=== PATIENT | female | born 1955 | race Caucasian/White ===

== ENCOUNTER 2016-05-03 18:25 | Inpatient (IN) | payer OTHER ==
[2016-05-03] VITALS (7 sets, daily range): BP systolic 168–222; BP diastolic 72–100; PULSE 52–60; RESP 16–20; O2SAT 97–99
[~2016-05-03] VITALS: Ht 170.2 cm; Wt 60.0 kg
[2016-05-03] MEDS ORDERED: ATEN50TA PO (18:56)
[2016-05-03] MEDS ORDERED: LEVO50TA4 PO (18:56)
[2016-05-03] MEDS ORDERED: HYDR50TA3 PO (18:56)
[2016-05-03] MEDS ORDERED: ROSU1TAB6 PO (18:56)
[2016-05-03] MEDS ORDERED: TRAZ150T75 PO (18:56)
[2016-05-03] MEDS ORDERED: IRBE150T49 PO (18:56)
[2016-05-03] MEDS ORDERED: SODIUM CHLORIDE 0.9% FLUSH 5 ML FLUSH IVF PRN (19:15)
[2016-05-03] MEDS ORDERED: hydrALAZINE HCL 20 MG/ML VIAL IV PUSH ONE (19:15)
--- NOTE | 2016-05-03 19:31 | RADRPT ---
EXAM DATE/TIME: 05/03/2016 19:22 [facility] COMPARISON: No previous studies available for comparison. INDICATIONS : Cephalgia with high blood pressure; left arm numbness. RADIATION DOSE: 38.73 CTDIvol (mGy) MEDICAL HISTORY : Hypertension. SURGICAL HISTORY : None. ENCOUNTER: Initial ACUITY: 1 day PAIN SCALE: 4/10 LOCATION: cranial TECHNIQUE: Multiple contiguous axial images were obtained of the head. Using automated exposure control and adj ustment of the mA and/or kV according to patient size, radiation dose was kept as low as reasonably a chievable to obtain optimal diagnostic quality images. FINDINGS: CEREBRUM: The ventricles are normal for age. No evidence of midline shift, mass lesion, hemorrhage or acute in farction. No extra-axial fluid collections are seen. Chronic-appearing low attenuation seen in the r ight insular region. POSTERIOR FOSSA: The cerebellum and brainstem are intact. The 4th ventricle is midline. The cerebellopontine angle i s unremarkable. EXTRACRANIAL: There is mucoperiosteal thickening of the sphenoid, ethmoid and maxillary air cells, in general right worse than left. SKULL: The calvaria is intact. No evidence of skull fracture. CONCLUSION: 1. No bleed or other acute intracranial abnormality. 2. Small, old right periventricular white matter infarct suspected. 3. Sinus disease. Juan Elder MD on May 03, 2016 at 19:27 Board Certified Radiologist. This report was verified electronically.
--- NOTE | 2016-05-03 19:39 | PD ---
HPI Chief Complaint: Hypertension Time Seen by Provider: 19:00 Travel History International Travel<30 days: No Contact w/Intl Traveler<30days: No Traveled to known affect area: No History of Present Illness HPI Patient is a 61-year-old female with history of hypertension currently taking ibesartan 150mg BID, hctz 50mg and now atenolol 50mg bid, presents to ER with c/ o of accelerated hypertension. Patient reports that she woke up this morning and noticed that her ankles appear more swollen, reports that she also was noticing that her right thumb felt numb, and reports that she had 3 episodes of vision loss/blurry vision today (which lasted around 3 min and resolved on its own). Patient reports that when she had these symptoms, she did become concerned and took her blood pressure. She reports that her blood pressures at home were elevated, she reports systolic blood pressure in the 200s, 199/101, reports that she did call her primary care doctor who added atenolol 50 mg to her medications. Patient reports that she did take a dose of atenolol and wait a few hours, reports that she then began to have increased symptoms and blood pressure was still elevated so care doctor advised her to come to the emergency room for evaluation of possible CVA versus hypertensive emergency. Patient this time reports no vision changes or blurry vision, denies any chest pain or shortness of breath. Patient reports that she feels increased pressure to her head. Patient does take a baby aspirin every single day. Patient with no fevers or chills at this time. PFSH Past Medical History Diverticulitis: Yes Genitourinary: Yes (stent renal artery) Hypertension: Yes ?: Not Social History Alcohol Use: Yes (rare) Tobacco Use: Yes (1/2 pack day) Substance Use: No Allergies-Medications (Allergen,Severity, Reaction): Coded Allergies: No Known Allergies (Unverified , 05/03/16) Reported Meds & Prescriptions Reported Meds & Active Scripts Active Reported Atenolol 50 Mg Tab 50 Mg PO BID Avapro (Irbesartan) 150 Mg Tab 150 Mg PO BID Levothyroxine (Levothyroxine Sodium) 50 Mcg Tab 50 Mcg PO DAILY Rosuvastatin (Rosuvastatin Calcium) 10 Mg Tab 10 Mg PO DAILY Hydrochlorothiazide 50 Mg Tab 50 Mg PO DAILY Trazodone (Trazodone HCl) 150 Mg Tab 150 Mg PO DAILY Review of Systems General / Constitutional: No: Fever Eyes: No: Visual changes HENT: Positive: Headaches, Other (vision changes) Cardiovascular: No: Chest Pain or Discomfort Respiratory: No: Shortness of Breath Gastrointestinal: No: Abdominal Pain Genitourinary: No: Dysuria Musculoskeletal: No: Pain Skin: No Rash Neurologic: Positive: Headache, No: Weakness Psychiatric: No: Depression Endocrine: No: Polydipsia Hematologic/Lymphatic: No: Easy Bruising Physical Exam Narrative GENERAL: No acute distress, nontoxic SKIN: Warm and dry. HEAD: Atraumatic. Normocephalic. EYES: Pupils equal and round. No scleral icterus. No injection or drainage. ENT: No nasal bleeding or discharge. Mucous membranes pink and moist. NECK: Trachea midline. No JVD. CARDIOVASCULAR: Regular rate and rhythm. No murmur appreciated. RESPIRATORY: No accessory muscle use. Clear to auscultation. Breath sounds equal bilaterally. GASTROINTESTINAL: Abdomen soft, non-tender, nondistended. Hepatic and splenic margins not palpable. MUSCULOSKELETAL: No obvious deformities. No clubbing. No cyanosis. No edema. NEUROLOGICAL: Awake and alert. No obvious cranial nerve deficits. Motor grossly within normal limits. Normal speech. Cranial nerves to 12 grossly intact with no obvious deficits PSYCHIATRIC: Appropriate mood and affect; insight and judgment normal. Data Data Last Documented VS Vital Signs Date Time Temp Pulse Resp B/P Pulse Ox O2 Delivery O2 Flow Rate FiO2 05/03/16 19:56 60 169/75 05/03/16 18:59 20 99 Room Air Orders Electrocardiogram (05/03/16 19:06) Prothrombin Time / Inr (Pt) (05/03/16 19:06) Act Partial Throm Time (Ptt) (05/03/16 19:06) Complete Blood Count With Diff (05/03/16 19:06) Comprehensive Metabolic Panel (05/03/16 19:06) Creatine Kinase (Cpk) (05/03/16 19:06) Troponin I (05/03/16 19:06) Urinalysis - C+S If Indicated (05/03/16 19:06) Ct Brain W/O Iv Contrast(Rout) (05/03/16 19:06) Chest, Single Ap (05/03/16 19:06) Ecg Monitoring (05/03/16 19:06) Iv Access Insert/Monitor (05/03/16 19:06) Oximetry (05/03/16 19:06) Sodium Chloride 0.9% Flush (Ns Flush) (05/03/16 19:15) Hydralazine Inj (Apresoline Inj) (05/03/16 19:15) Blood Culture (05/03/16 20:02) Ceftriaxone Inj (Rocephin Inj) (05/03/16 20:15) Azithromycin Inj (Zithromax Inj) (05/03/16 20:15) Aspirin (Aspirin) (05/03/16 20:15) Urine Culture (05/03/16 19:30) Labs Laboratory Tests Test 05/03/16 19:30 White Blood Count 11.0 TH/MM3 Red Blood Count 3.43 MIL/MM3 Hemoglobin 9.7 GM/DL Hematocrit 28.6 % Mean Corpuscular Volume 83.4 FL Mean Corpuscular Hemoglobin 28.3 PG Mean Corpuscular Hemoglobin 33.9 % Concent Red Cell Distribution Width 14.3 % Platelet Count 192 TH/MM3 Mean Platelet Volume 8.4 FL Neutrophils (%) (Auto) 66.4 % Lymphocytes (%) (Auto) 25.8 % Monocytes (%) (Auto) 4.8 % Eosinophils (%) (Auto) 2.4 % Basophils (%) (Auto) 0.6 % Neutrophils # (Auto) 7.3 TH/MM3 Lymphocytes # (Auto) 2.8 TH/MM3 Monocytes # (Auto) 0.5 TH/MM3 Eosinophils # (Auto) 0.3 TH/MM3 Basophils # (Auto) 0.1 TH/MM3 CBC Comment DIFF FINAL Differential Comment Prothrombin Time 13.9 SEC Prothromb Time International 1.2 RATIO Ratio Activated Partial 56.5 SEC Thromboplast Time Urine Color YELLOW Urine Turbidity CLEAR Urine pH 6.5 Urine Specific [place] 1.009 Urine Protein 300 mg/dL Urine Glucose (UA) NEG mg/dL Urine Ketones NEG mg/dL Urine Occult Blood MOD Urine Nitrite NEG Urine Bilirubin NEG Urine Urobilinogen LESS THAN 2.0 MG/DL Urine Leukocyte Esterase NEG Urine RBC 37 /hpf Urine WBC 4 /hpf Urine Squamous Epithelial 1 /hpf Cells Urine Bacteria RARE /hpf Urine Hyaline Casts 1 /lpf Urine Mucus FEW /lpf Microscopic Urinalysis Comment CATH-CULTURE IND Sodium Level 143 MEQ/L Potassium Level 3.9 MEQ/L Chloride Level 110 MEQ/L Carbon Dioxide Level 23.2 MEQ/L Anion Gap 10 MEQ/L Blood Urea Nitrogen 24 MG/DL Creatinine 1.30 MG/DL Estimat Glomerular Filtration 42 ML/MIN Rate Random Glucose 130 MG/DL Calcium Level 8.9 MG/DL Total Bilirubin 0.3 MG/DL Aspartate Amino Transf 14 U/L (AST/SGOT) Alanine Aminotransferase 17 U/L (ALT/SGPT) Alkaline Phosphatase 94 U/L Total Creatine Kinase 69 U/L Troponin I 0.07 NG/ML Total Protein 6.5 GM/DL Albumin 2.9 GM/DL MDM Medical Decision Making Medical Screen Exam Complete: Yes Emergency Medical Condition: Yes Interpretation(s) EKG at 1945: Sinus bradycardia at 50 bpm, QT/QTc 442/414, no acute ST-T wave changes Vital Signs Date Time Temp Pulse Resp B/P Pulse Ox O2 Delivery O2 Flow Rate FiO2 05/03/16 18:59 55 20 222/100 99 Room Air 217/100 05/03/16 18:46 58 20 221/93 99 Differential Diagnosis Hypertensive emergency, TIA, CVA, arrhythmia, electrolyte abnormality Narrative Course Patient is a 61-year-old female who presents to emergency room with complaints of hypertension as well as vision changes with right thumb numbness and swelling to her ankles. Patient reports that she noticed the symptoms this morning, reports that she is currently on but pressure medications and has been compliant with her medications, reports that her systolic blood pressure has been over 200 to the high 190s day today. Patient did start atenolol today, reports it is has not helped with her blood pressure. Reports concerns with her intermittent visual losses as well as numbness her thumb. Patient was placed on a client service consultant, EKG ordered as well as labs and ct of head. Will give patient IV antihypertensives for her bp of 217/100 Patient's blood pressure after 10 mg of IV hydralazine now 169/75 CT of the head with Last Impressions Head CT 05/03/161905 Signed Impressions: Service Date/Time: Tuesday, May 03, 2016 19:22 - CONCLUSION: 1. No bleed or other acute intracranial abnormality. 2. Small, old right periventricular white matter infarct suspected. 3. Sinus disease. Juan Elder MD Patient will admission for blood pressure control. Last Impressions Head CT 05/03/161905 Signed Impressions: Service Date/Time: Tuesday, May 03, 2016 19:22 - CONCLUSION: 1. No bleed or other acute intracranial abnormality. 2. Small, old right periventricular white matter infarct suspected. 3. Sinus disease. Juan Elder MD Chest X-Ray 05/03/161905 Signed Impressions: Service Date/Time: Tuesday, May 03, 2016 19:40 - CONCLUSION: Mild left base consolidation. Juan Elder MD X-ray chest with mild left base consolidation - patient reports that she was recently ill with upper respiratory infection. Reports that she has had a nonproductive cough for the past 3 weeks. Patient with most likely pneumonia, will obtain blood cultures and treat for pneumonia. Physician Communication Physician Communication case reviewed with dr lam who accepts pt to service Diagnosis Primary Impression: Hypertensive urgency Additional Impressions: Pneumonia Qualified Code: J18.1 - Pneumonia of left lower lobe due to infectious organism Renal insufficiency positive troponin Admitting Information Admitting Physician Requests: Admit Rosa Grimes DO May 03, 2016 19:39
--- NOTE | 2016-05-03 19:55 | RADRPT ---
EXAM DATE/TIME: 05/03/2016 19:40 [facility] COMPARISON: No previous studies available for comparison. INDICATIONS : High blood pressure and short of breath today. MEDICAL HISTORY : Hypertension. SURGICAL HISTORY : Cardiac stent. ENCOUNTER: Initial ACUITY: 1 day PAIN SCORE: 2/10 LOCATION: Bilateral chest FINDINGS: Mild infiltrate seen laterally of the left lung base. Lungs otherwise appear clear. No pleural effusi on. No pneumothorax. Heart size within normal limits. CONCLUSION: Mild left base consolidation. Juan Elder MD on May 03, 2016 at 19:53 Board Certified Radiologist. This report was verified electronically.
[2016-05-03 20:09] LABS: AUTOMATED NEUTROPHIL # 7.3 TH/MM3 (1.8-7.7); BASOPHIL # 0.1 TH/MM3 (0-0.2); BASOPHIL % 0.6 % (0.0-2.0); EOSINOPHIL # 0.3 TH/MM3 (0-0.4); EOSINOPHIL % 2.4 % (0.0-4.0); HEMATOCRIT 28.6 % (35.0-46.0); HEMO FLAGS DIFF FINAL; LYMPH % 25.8 % (9.0-44.0); LYMPHOCYTE # 2.8 TH/MM3 (1.0-4.8); MEAN CELL VOLUME 83.4 FL (80.0-100.0); MEAN CORPUSCULAR HEMOGLOBIN 28.3 PG (27.0-34.0); MEAN CORPUSCULAR HGB CONC 33.9 % (32.0-36.0); MONO % 4.8 % (0.0-8.0); NEUT % 66.4 % (16.0-70.0); PLATELET COUNT 192 TH/MM3 (150-450); RED BLOOD COUNT 3.43 MIL/MM3 (4.00-5.30); RED CELL DISTRIBUTION WIDTH 14.3 % (11.6-17.2)
[2016-05-03 20:15] LABS: BACTERIA, URINE RARE /hpf; BLOOD, URINE MOD (NEG); COMMENT (UR) CATH-CULTURE IND; CULTURE IF INDICATED CATH CULTURE IND; GLUCOSE,URINE NEG (NEG); HYALINE CAST, URINE 1 /lpf (RARE); KETONE, URINE NEG (NEG); MUCUS URINE FEW /lpf (OCC); NITRITE,URINE NEG (NEG); PH, URINE 6.5 (5.0-8.5); SQUAMOUS EPITHELIAL CELL URINE 1 /hpf (0-5); URINE COLOR YELLOW (YELLW/STRAW)
[2016-05-03] MEDS ORDERED: cefTRIAXone INJ 1,000 MG in SODIUM CHLORIDE 0.9% INJ 100 ML IV ONE (20:15)
[2016-05-03] MEDS ORDERED: AZITHROMYCIN INJ 500 MG in SODIUM CHLOR 0.9% 250 ML INJ 250 ML IV ONE (20:15)
[2016-05-03] MEDS ORDERED: ASPIRIN 325 MG TAB PO ONE (20:15)
[2016-05-03 20:19] LABS: APTT (PATIENT) 56.5 SEC (24.3-30.1); INTERNATIONAL NORMALIZED RATIO 1.2 RATIO; PROTHROMBIN TIME - PATIENT 13.9 SEC (9.8-11.6)
[2016-05-03 20:22] LABS: ANION GAP 10 MEQ/L (5-15); AST (GOT) 14 U/L (15-37); BICARBONATE 23.2 MEQ/L (21.0-32.0); BLOOD UREA NITROGEN 24 MG/DL (7-18); CHLORIDE 110 MEQ/L (98-107); GLOMERULAR FILTRATION RATE 42 ML/MIN (>89); POTASSIUM 3.9 MEQ/L (3.5-5.1); SODIUM (NA) 143 MEQ/L (136-145)
[2016-05-03 20:26] LABS: ALKALINE PHOSPHATASE 94 U/L (45-117); ALT (GPT) 17 U/L (10-53); TOTAL BILIRUBIN ADULT 0.3 MG/DL (0.2-1.0)
[2016-05-03 20:31] LABS: CREATINE KINASE 69 U/L (26-192)
[2016-05-03] MEDS ORDERED: cloNIDine HCL 0.1 MG TAB PO PRN (21:15)
[2016-05-03] MEDS ORDERED: LOSARTAN 50 MG TAB PO SCH (21:15)
--- NOTE | 2016-05-03 21:22 | HHI.HP ---
HPI Service [facility] Hospitalists Primary Care Physician Juan Joyce, DO Admission Diagnosis Accelerated hypertension with transient neurologic deficits, pneumonia Chief Complaint: Elevated blood pressure, transient visual changes, productive cough, headache, tingling/numbness Travel History International Travel<30 Days: No Contact w/Intl Traveler <30 Da: No Traveled to Known Affected Are: No History of Present Illness Patient is a 61-year-old female with history of hypertension currently taking ibesartan 150mg BID, hctz 50mg and newly added atenolol 50mg bid, presents to ER with c/o of accelerated hypertension with some visual changes and tingling. Patient reports that she woke up this morning and noticed that her ankles appeared more swollen, reports that she also was noticing that her left thumb felt numb, and reports that she had 3 episodes of vision loss/blurry vision today (which lasted around 3 min and resolved on its own). Patient reports that when she had these symptoms, she did become concerned and took her blood pressure. She reports that her blood pressures at home were elevated, she reports systolic blood pressure in the 200s, 199/101. Reports that she called her primary care doctor who added atenolol 50 mg twice daily to her medications. Patient reports that she did take a dose of atenolol and waited a few hours, reports that she then began to have increased symptoms and blood pressure was still elevated so her doctor advised her to come to the emergency room for evaluation of possible CVA versus hypertensive emergency. Patient this time reports no vision changes or blurry vision, denies any chest pain or shortness of breath. Patient reports that she feels increased pressure to her head. Patient does takes 2 baby aspirin every single day. Patient with no fevers or chills at this time. No recent foreign travel or head injury. No change in urination output. She has long-standing history of hypertension but notes it only has become somewhat uncontrolled over the last few days. On further questioning patient notes that she's had some complete loss of vision in her right eye approximately one time per week over the last 6 months. She reports that the right eye will "go black" for approximately 3-4 minutes. The vision comes back. She is reportedly not told any medical provider about this. It is noted she has been treated for pneumonia as an outpatient with Levaquin and prednisone which she finished approximately 10-12 days ago. She notes the cough has returned and she is not sure she's had a fever or not. Denies any hemoptysis or hematemesis. No significant weight loss. Denies night sweats. Review of Systems Constitutional: COMPLAINS OF: Fatigue, Chills, DENIES: Diaphoretic episodes, Fever, Weight gain, Weight loss, Dizziness, Change in appetite, Night Sweats Eyes: COMPLAINS OF: Blurred vision, Vision loss, DENIES: Diplopia, Eye inflammation, Eye pain, Photosensitivity, Double Vision Ears, nose, mouth, throat: DENIES: Tinnitus, Hearing loss, Vertigo, Nasal discharge, Oral lesions, Throat pain, Hoarseness, Ear Pain, Running Nose, Epistaxis, Sinus Pain, Toothache, Odynophagia Respiratory: COMPLAINS OF: Cough, Sputum production, Shortness of breath, DENIES: Apneas, Snoring, Wheezing, Hemoptysis Cardiovascular: COMPLAINS OF: Lower Extremity Edema, DENIES: Chest pain, Palpitations, Syncope, Dyspnea on Exertion, PND, Orthopnea, Claudication Gastrointestinal: DENIES: Abdominal pain, Black stools, Bloody stools, BRB per rectum, Constipation, Diarrhea, GERD, Nausea, Reflux, Vomiting, Difficulty Swallowing, Anorexia, See HPI Integumentary: DENIES: Abnormal pigmentation, Pruritus, Rash, Nail changes, Breast masses, Breast skin changes, Nipple discharge Hematologic/lymphatic: DENIES: Bruising, Lymphadenopathy Immunologic/allergic: DENIES: Eczema, Urticaria Neurologic: COMPLAINS OF: Headache, Paresthesias, DENIES: Abnormal gait, Localized weakness, Seizures, Speech Problems, Tremor, Poor Balance Psychiatric: COMPLAINS OF: Anxiety, DENIES: Confusion, Mood changes, Depression, Hallucinations, Agitation, Suicidal Ideation, Homicidal Ideation, Delusions, History of Bipolar, History of Schizophrenia Past Family Social History Past Medical History Coronary artery disease Hypertension Current every day smoker Hyperlipidemia Past Surgical History Heart catheterization with stent placement in 2007 in [place] Denies any other surgeries Reported Medications Atenolol 50 Mg Tab 50 Mg PO BID Avapro (Irbesartan) 150 Mg Tab 150 Mg PO BID Levothyroxine (Levothyroxine Sodium) 50 Mcg Tab 50 Mcg PO DAILY Rosuvastatin (Rosuvastatin Calcium) 10 Mg Tab 10 Mg PO DAILY Hydrochlorothiazide 50 Mg Tab 50 Mg PO DAILY Trazodone (Trazodone HCl) 150 Mg Tab 150 Mg PO DAILY Allergies: Coded Allergies: No Known Allergies (Unverified , 05/03/16) Family History Mother and father had coronary artery disease. No strokes to her knowledge. Social History Patient lives with her daughter who is a nurse in the ER. 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 [employer] Originally from [place], has been here for 8 years Smokes 10 cigarettes per day but previously smoked 1 pack per day for approximately 40 years Drinks approximately 4 alcoholic beverages per month Denies illicit drug use Physical Exam Vital Signs Vital Signs Date Time Temp Pulse Resp B/P Pulse Ox O2 Delivery O2 Flow Rate FiO2 05/03/16 20:57 53 16 188/85 97 Room Air 05/03/16 19:56 60 169/75 05/03/16 19:53 53 188/81 05/03/16 19:43 52 215/78 05/03/16 18:59 55 20 222/100 99 Room Air 217/100 05/03/16 18:46 58 20 221/93 99 Physical Exam GENERAL: This is a well-nourished, well-developed patient, in no apparent distress. Appears younger than her stated age. Alert and oriented and quite cooperative. SKIN: No rashes, ecchymoses or lesions. Cool and dry. HEAD: Atraumatic. Normocephalic. No temporal or scalp tenderness. EYES: Pupils equal round and reactive. Extraocular motions intact. No scleral icterus. No injection or drainage. ENT: Nose without bleeding, purulent drainage or septal hematoma. Airway patent. NECK: Trachea midline. No JVD or lymphadenopathy. Supple, nontender, no meningeal signs. CARDIOVASCULAR: Regular rate and rhythm without murmurs, gallops, or rubs. RESPIRATORY: Clear to auscultation with the exception of occasional expiratory wheeze in the left midlung. No fine crackles. Good air movement. GASTROINTESTINAL: Abdomen soft, non-tender, nondistended. No hepato-splenomegaly , or palpable masses. No guarding. MUSCULOSKELETAL: Extremities without clubbing, cyanosis. Trace edema in distal bilateral lower extremities. No pitting. No joint tenderness, effusion, or edema noted. No calf tenderness. NEUROLOGICAL: Awake and alert. Cranial nerves II through XII intact. Motor and sensory grossly within normal limits. Five out of 5 muscle strength in all muscle groups. Normal speech. Laboratory Laboratory Tests Test 05/03/16 19:30 White Blood Count 11.0 Red Blood Count 3.43 Hemoglobin 9.7 Hematocrit 28.6 Mean Corpuscular Volume 83.4 Mean Corpuscular Hemoglobin 28.3 Mean Corpuscular Hemoglobin 33.9 Concent Red Cell Distribution Width 14.3 Platelet Count 192 Mean Platelet Volume 8.4 Neutrophils (%) (Auto) 66.4 Lymphocytes (%) (Auto) 25.8 Monocytes (%) (Auto) 4.8 Eosinophils (%) (Auto) 2.4 Basophils (%) (Auto) 0.6 Neutrophils # (Auto) 7.3 Lymphocytes # (Auto) 2.8 Monocytes # (Auto) 0.5 Eosinophils # (Auto) 0.3 Basophils # (Auto) 0.1 CBC Comment DIFF FINAL Differential Comment Prothrombin Time 13.9 Prothromb Time International 1.2 Ratio Activated Partial 56.5 Thromboplast Time Urine Color YELLOW Urine Turbidity CLEAR Urine pH 6.5 Urine Specific [place] 1.009 Urine Protein 300 Urine Glucose (UA) NEG Urine Ketones NEG Urine Occult Blood MOD Urine Nitrite NEG Urine Bilirubin NEG Urine Urobilinogen LESS THAN 2.0 Urine Leukocyte Esterase NEG Urine RBC 37 Urine WBC 4 Urine Squamous Epithelial 1 Cells Urine Bacteria RARE Urine Hyaline Casts 1 Urine Mucus FEW Microscopic Urinalysis Comment CATH-CULTURE IND Sodium Level 143 Potassium Level 3.9 Chloride Level 110 Carbon Dioxide Level 23.2 Anion Gap 10 Blood Urea Nitrogen 24 Creatinine 1.30 Estimat Glomerular Filtration 42 Rate Random Glucose 130 Calcium Level 8.9 Total Bilirubin 0.3 Aspartate Amino Transf 14 (AST/SGOT) Alanine Aminotransferase 17 (ALT/SGPT) Alkaline Phosphatase 94 Total Creatine Kinase 69 Troponin I 0.07 Total Protein 6.5 Albumin 2.9 Date/Time Procedure Status Source Growth 05/03/16 20:40 Aerobic Blood Culture Received Blood Peripheral Pending 05/03/16 20:40 Anaerobic Blood Culture Received Blood Peripheral Pending 05/03/16 19:30 Urine Culture Received Urine Catheterized Urine Pending Result Diagram: 05/03/16192905/03/161929 Imaging Last [address] 05/03/161905 Signed Impressions: Service Date/Time: Tuesday, May 03, 2016 19:22 - CONCLUSION: 1. No bleed or other acute intracranial abnormality. 2. Small, old right periventricular white matter infarct suspected. 3. Sinus disease. Juan Elder MD Chest X-Ray 05/03/16 1903 Signed Impressions: Service Date/Time: Tuesday, May 03, 2016 19:40 - CONCLUSION: Mild left base consolidation. Juan Elder MD Assessment and Plan Problem List: (1) Accelerated hypertension Status: Acute Plan: Continue home medication and add when necessary clonidine. Check labs and further imaging. (2) Transient neurologic deficit Status: Acute Plan: Patient with apparent intermittent amaurosis fugax. Check imaging as noted. (3) Anemia Status: Acute Plan: Questionable duration and etiology. Possibly associated with renal insufficiency. It is noted that her creatinine is typically 1.1 and her hemoglobin was 11.6 in September 2015. (4) Renal insufficiency Status: Chronic Plan: Creatinine is slightly above her baseline of 1.1. We'll hydrate and follow. (5) Pneumonia Status: Acute Plan: Provide antibiotics. She does not appear clinically toxic. Oxygen saturations are fine. (6) Troponin level elevated Status: Acute Plan: Possibly associated with the elevated blood pressure and renal insufficiency. Patient has no complaints or other findings consistent with acute coronary syndrome. We'll follow labs and EKG. (7) Hyperlipidemia Status: Chronic Plan: Continue medication. Code Status Full Discussed Condition With Patient and ER physician. Physician Certification 2 Midnight Certification Type: Admission for Inpatient Services Order for Inpatient Services The services are ordered in accordance with Medicare regulations or non- Medicare payer requirements, as applicable. In the case of services not specified as inpatient-only, they are appropriately provided as inpatient services in accordance with the 2-midnight benchmark. Estimated LOS (days): 2 days is the estimated time the patient will need to remain in the hospital, assuming treatment plan goals are met and no additional complications. Post-Hospital Plan: Home Problem Qualifiers (1) Pneumonia: Qualified Code: J18.1 - Pneumonia of left lower lobe due to infectious organism Roni Carlos MD PhD May 03, 2016 21:22
[2016-05-03] MEDS: LOSARTAN 50 MG TAB PO SCH (22:37)
[2016-05-04] VITALS (7 sets, daily range): BP systolic 145–170; BP diastolic 74–89; PULSE 52–88; RESP 18–20; TEMP 97.7–98.7; O2SAT 96–97
[2016-05-04] MEDS ORDERED: ACETAMIN 325 MG/BUTALBITAL 50 MG/CAFFEINE 40 MG TAB PO SCH (01:00)
--- NOTE | 2016-05-04 01:36 | RADRPT ---
EXAM DATE/TIME: 05/04/2016 00:24 [facility] COMPARISON: No previous studies available for comparison. INDICATIONS : Transient neurologic deficit. MEDICAL HISTORY : Hypertension. Diverticulitis. Dyspnea. Paresthesia. SURGICAL HISTORY : Renal artery stent. ENCOUNTER: Initial ACUITY: 1 day PAIN SCORE: 8/10 LOCATION: Bilateral neck PEAK SYSTOLIC VELOCITIES (cm/sec): ICA/CCA RATIO: Right: 1.8 Left: 1.0 ICA: Right: 118 Left: 94 CCA: Right: 66 Left: 94 ECA: Right: 97 Left: 106 VERTEBRAL: Right: 124 antegrade Left: 79 antegrade Elevated flow velocities and ICA/CCA ratios have been found to correlate with increased degrees of vessel stenosis, calculated as percentage of diameter relative to a normal segment of distal ICA/CCA FINDINGS: RIGHT CAROTID: Dense calcified plaque in the right carotid bulb extending up into the internal. The waveforms are w ithin normal limits. LEFT CAROTID: Mild calcified plaque in the left carotid bulb. The waveforms are within normal limits. VERTEBRAL ARTERIES: Antegrade flow is seen in both vertebral arteries. MISCELLANEOUS: None. CONCLUSION: 1. Bilateral carotid calcifications, right greater than left. 2. However, no Doppler or sonographic findings of a hemodynamically significant stenosis. Antegrade f low in both vertebral arteries. Nash Sadler MD on May 04, 2016 at 1:33 Board Certified Radiologist. This report was verified electronically.
[2016-05-04] MEDS: LEVOTHYROXINE SODIUM 50 MCG TAB PO SCH (05:13)
[2016-05-04 05:40] LABS: AUTOMATED NEUTROPHIL # 6.1 TH/MM3 (1.8-7.7); BASOPHIL % 0.5 % (0.0-2.0); EOSINOPHIL # 0.3 TH/MM3 (0-0.4); EOSINOPHIL % 3.3 % (0.0-4.0); HEMATOCRIT 25.7 % (35.0-46.0); HEMO FLAGS DIFF FINAL; LYMPH % 31.7 % (9.0-44.0); LYMPHOCYTE # 3.3 TH/MM3 (1.0-4.8); MEAN CELL VOLUME 81.9 FL (80.0-100.0); MEAN CORPUSCULAR HEMOGLOBIN 28.6 PG (27.0-34.0); MEAN CORPUSCULAR HGB CONC 34.9 % (32.0-36.0); NEUT % 59.5 % (16.0-70.0); PLATELET COUNT 183 TH/MM3 (150-450); RED BLOOD COUNT 3.13 MIL/MM3 (4.00-5.30); RED CELL DISTRIBUTION WIDTH 14.4 % (11.6-17.2); WHITE BLOOD COUNT 10.3 TH/MM3 (4.0-11.0)
[2016-05-04 05:49] LABS: ALT (GPT) 16 U/L (10-53); ANION GAP 12 MEQ/L (5-15); AST (GOT) 16 U/L (15-37); BICARBONATE 19.3 MEQ/L (21.0-32.0); BLOOD UREA NITROGEN 21 MG/DL (7-18); CHLORIDE 112 MEQ/L (98-107); GLOMERULAR FILTRATION RATE 44 ML/MIN (>89); POTASSIUM 3.7 MEQ/L (3.5-5.1); SODIUM (NA) 143 MEQ/L (136-145)
[2016-05-04 05:58] LABS: ALKALINE PHOSPHATASE 85 U/L (45-117); HDL CHOLESTEROL 43.7 MG/DL (40.0-60.0); LDL CHOLESTEROL 40 MG/DL (0-99); TOTAL BILIRUBIN ADULT 0.3 MG/DL (0.2-1.0)
[2016-05-04] MEDS ORDERED: hydrALAZINE HCL 25 MG TAB PO SCH (09:00)
[2016-05-04] MEDS: traZODone HCL 50 MG TAB PO SCH ×2 (09:00→21:07)
[2016-05-04] MEDS: ATORVASTATIN 20 MG TAB PO SCH (09:22)
[2016-05-04] MEDS: LOSARTAN 50 MG TAB PO SCH ×2 (09:22→21:06)
[2016-05-04] MEDS: ASPIRIN 325 MG TAB PO SCH (09:22)
--- NOTE | 2016-05-04 11:20 | RADRPT ---
EXAM DATE/TIME: 05/04/2016 09:42 [facility] COMPARISON: No previous studies available for comparison. INDICATIONS : Dizziness. Hypertension. Left hand numbness. MEDICAL HISTORY : Hypertension. Cardiovascular disease SURGICAL HISTORY : Angioplasty. ENCOUNTER: Subsequent ACUITY: 2 day PAIN SCORE: 0/10 LOCATION: head. Please note a normal MRA of the brain does not entirely exclude the possibility of a small aneurysm, nor the possibility of distal intracranial vessel disease. TECHNIQUE: 3D time of flight MRA was performed. Source images, multiplanar STS MIP, and 3D volume MIP reconstru ctions were reviewed. FINDINGS: There is excellent visualization of the major intracranial arteries out to the second-order branch ve ssels. There is no evidence for aneurysm, vessel truncation or stenosis, and no evidence for vascula r malformation. CONCLUSION: Normal intracranial arteries. Juan Elder MD on May 04, 2016 at 11:19 Board Certified Radiologist. This report was verified electronically.
--- NOTE | 2016-05-04 11:20 | RADRPT ---
EXAM DATE/TIME: 05/04/2016 09:42 [facility] COMPARISON: MRA BRAIN W/O CONTRAST, May 04, 2016, 9:42. CT BRAIN W/O CONTRAST, May 03, 2016, 19:22. INDICATIONS : Dizziness. CVA. Hypertension. Left hand numbness. MEDICAL HISTORY : Hypertension. Cardiovascular disease SURGICAL HISTORY : Angioplasty. ENCOUNTER: Subsequent ACUITY: 2 day PAIN SCORE: 0/10 LOCATION: head TECHNIQUE: Multiplanar, multisequence MRI of the brain was performed without contrast. FINDINGS: There is no bleed or restricted diffusion. Patient has mild, scattered subcentimeter foci of flair si gnal abnormality in the periventricular white matter. There is an elongated subcortical infarct poste riorly of the right frontal lobe, old. This area has some old hemorrhagic products present as well. No mass lesion demonstrated. No mass effect or midline shift. Mucoperiosteal thickening again seen of the visualized paranasal sinuses. CONCLUSION: 1. No acute infarct or other acute intracranial abnormality demonstrated. 2. Mild, chronic white matter changes and an old subcortical infarct posteriorly the right frontal lo be. 3. Sinus disease again noted. Juan Elder MD on May 04, 2016 at 11:16 Board Certified Radiologist. This report was verified electronically.
--- NOTE | 2016-05-04 14:15 | HHI.PR ---
Objective Vitals Vital Signs Date Time Temp Pulse Resp B/P Pulse Ox O2 Delivery O2 Flow Rate FiO2 05/04/16 11:41 98.6 58 20 170/77 97 05/04/16 08:02 97.7 60 18 170/80 97 05/04/16 06:01 98.7 58 18 145/76 96 05/04/16 03:04 16 05/04/16 00:49 54 05/04/16 00:16 98.5 57 18 162/79 97 05/03/16 23:30 57 168/72 05/03/16 20:57 53 16 188/85 97 Room Air 05/03/16 19:56 60 169/75 05/03/16 19:53 53 188/81 05/03/16 19:43 52 215/78 05/03/16 18:59 55 20 222/100 99 Room Air 217/100 05/03/16 18:46 58 20 221/93 99 Result Diagram: 05/04/16 0449 05/04/16 0449 Imaging Last [address] 05/03/161905 Signed Impressions: Service Date/Time: Tuesday, May 03, 2016 19:22 - CONCLUSION: 1. No bleed or other acute intracranial abnormality. 2. Small, old right periventricular white matter infarct suspected. 3. Sinus disease. Juan Elder MD Chest X-Ray 05/03/161905 Signed Impressions: Service Date/Time: Tuesday, May 03, 2016 19:40 - CONCLUSION: Mild left base consolidation. Juan Elder MD A/P Problem List: (1) Accelerated hypertension Status: Acute Plan: Continue home medication and add when necessary clonidine. Check labs and further imaging. (2) Transient neurologic deficit Status: Acute Plan: Patient with apparent intermittent amaurosis fugax. Check imaging as noted. (3) Anemia Status: Chronic Plan: Questionable duration and etiology. Possibly associated with renal insufficiency. It is noted that her creatinine is typically 1.1 and her hemoglobin was 11.6 in September 2015. (4) Renal insufficiency Status: Chronic Plan: Creatinine is slightly above her baseline of 1.1. We'll hydrate and follow. (5) Pneumonia Status: Acute Plan: Provide antibiotics. She does not appear clinically toxic. Oxygen saturations are fine. (6) Troponin level elevated Status: Acute Plan: Possibly associated with the elevated blood pressure and renal insufficiency. Patient has no complaints or other findings consistent with acute coronary syndrome. We'll follow labs and EKG. (7) Hyperlipidemia Status: Chronic Plan: Continue medication. Problem Qualifiers (1) Pneumonia: Qualified Code: J18.1 - Pneumonia of left lower lobe due to infectious organism Alireza Sofia MD May 04, 2016 14:15
--- NOTE | 2016-05-04 14:22 | HHI.PR ---
Subjective Remarks says the sx's of htn/visual loss/leg swelling were exactly her sx's in [place] when she required a stent in her heart. Objective Vitals heart reg lung cta abd s/nt ext no edema Vital Signs Date Time Temp Pulse Resp B/P Pulse Ox O2 Delivery O2 Flow Rate FiO2 05/04/16 11:41 98.6 58 20 170/77 97 05/04/16 08:02 97.7 60 18 170/80 97 05/04/16 06:01 98.7 58 18 145/76 96 05/04/16 03:04 16 05/04/16 00:49 54 05/04/16 00:16 98.5 57 18 162/79 97 05/03/16 23:30 57 168/72 05/03/16 20:57 53 16 188/85 97 Room Air 05/03/16 19:56 60 169/75 05/03/16 19:53 53 188/81 05/03/16 19:43 52 215/78 05/03/16 18:59 55 20 222/100 99 Room Air 217/100 05/03/16 18:46 58 20 221/93 99 Result Diagram: 05/04/16 0449 05/04/16 0449 Imaging Last [address] 05/03/161905 Signed Impressions: Service Date/Time: Tuesday, May 03, 2016 19:22 - CONCLUSION: 1. No bleed or other acute intracranial abnormality. 2. Small, old right periventricular white matter infarct suspected. 3. Sinus disease. Juan Elder MD Chest X-Ray 05/03/161905 Signed Impressions: Service Date/Time: Tuesday, May 03, 2016 19:40 - CONCLUSION: Mild left base consolidation. Juan Elder MD A/P Problem List: (1) Hypertensive urgency Status: Acute Plan: Pt presents with severe elevation of htn. describes intermittent total visual loss bilaterally and more lower ext edema over several months. Pt says these sx's were exactly the same way she presented for cad and required a coronary stent in [place]. neuro w/up last night negative for acute cva. adjust bp meds for control echo pending. telemetry lexiscan in AM (2) CAD (coronary artery disease) Status: Chronic Plan: hx cad stent. 8 yrs ago (3) CKD (chronic kidney disease) stage 3, GFR 30-59 ml/min Status: Chronic Plan: of note pt give hx of "renal art. stenosis" (4) HTN (hypertension) Status: Chronic Plan: see above (5) Anemia Status: Chronic Plan: Questionable duration and etiology. Possibly associated with renal insufficiency. It is noted that her creatinine is typically 1.1 and her hemoglobin was 11.6 in September 2015. (6) Troponin level elevated Status: Acute Plan: r/o cad. could be htn and myocardial strain related. (7) Hyperlipidemia Status: Chronic Plan: Continue medication. Alireza Sofia MD May 04, 2016 14:22
[2016-05-04] MEDS ORDERED: PETROLEUM/SHARK LIVER OIL 60 GM TUBE TOPICAL PRN (17:00)
--- NOTE | 2016-05-04 18:30 | EKG ---
Date Performed: 05/04/2016 Time Performed: 06:34:12 PTAGE: 61 years EKG: SINUS BRADYCARDIA BORDERLINE ECG PREVIOUS TRACING : 05/03/2016 23.03 DOCTOR: Harsha Simmons Interpretating Date/Time 05/04/2016 18:29:07
--- NOTE | 2016-05-04 18:35 | EKG ---
Date Performed: 05/03/2016 Time Performed: 23:03:33 PTAGE: 61 years EKG: SINUS BRADYCARDIA BORDERLINE ECG PREVIOUS TRACING : 05/03/2016 19.45 DOCTOR: Harsha Simmons Interpretating Date/Time 05/04/2016 18:33:29
--- NOTE | 2016-05-04 18:39 | EKG ---
Date Performed: 05/03/2016 Time Performed: 19:45:52 PTAGE: 61 years EKG: SINUS BRADYCARDIA BORDERLINE ECG NO PREVIOUS TRACING DOCTOR: Harsha Simmons Interpretating Date/Time 05/04/2016 18:36:32
[2016-05-04] MEDS ORDERED: AZITHROMYCIN INJ 500 MG in SODIUM CHLOR 0.9% 250 ML INJ 250 ML IV SCH (21:00)
[2016-05-04] MEDS: NIFEdipine 30 MG SUSTAINED RELEASE TAB PO SCH (21:06)
[2016-05-04] MEDS ORDERED: cefTRIAXone INJ 1,000 MG in SODIUM CHLORIDE 0.9% INJ 100 ML IV SCH (22:00)
[2016-05-05 00:26] VITALS: PULSE 64
[2016-05-05 01:48] VITALS: BP 152/79; PULSE 85; RESP 18; TEMP 98.2; O2SAT 97
[2016-05-05 04:13] VITALS: BP 160/70; PULSE 58; RESP 18; TEMP 98.1; O2SAT 97
[2016-05-05 05:19] LABS: BICARBONATE 23.3 MEQ/L (21.0-32.0); POTASSIUM 3.8 MEQ/L (3.5-5.1)
[2016-05-05] MEDS: LEVOTHYROXINE SODIUM 50 MCG TAB PO SCH (05:23)
[2016-05-05 07:48] VITALS: BP 129/67; PULSE 59; RESP 20; TEMP 97.8; O2SAT 97
[2016-05-05 08:00] VITALS: PULSE 64
[2016-05-05] MEDS ORDERED: HYDROCHLOROTHIAZIDE 25 MG TAB PO SCH (09:00)
[2016-05-05] MEDS ORDERED: AMINOPHYLLINE INJ 250 MG/10 ML VIAL ONE (09:56)
[2016-05-05] MEDS ORDERED: REGADENOSON INJ 0.4 MG/5 ML SYR ONE (09:56)
[2016-05-05] MEDS: NIFEdipine 30 MG SUSTAINED RELEASE TAB PO SCH (10:49)
[2016-05-05] MEDS: ATORVASTATIN 20 MG TAB PO SCH (10:49)
[2016-05-05] MEDS: ASPIRIN 325 MG TAB PO SCH (10:49)
[2016-05-05] MEDS: LOSARTAN 50 MG TAB PO SCH (10:50)
--- NOTE | 2016-05-05 11:26 | RADRPT ---
EXAM DATE/TIME: 05/05/2016 08:48 [facility] COMPARISON: No previous studies available for comparison. INDICATIONS : Blurry vision with leg swelling for one day. Elevated troponins. Coronary artery disease. DOSE: 27.0 mCi Tc99m Myoview at stress. 8.7 mCi Tc99m Myoview at rest. 0.4 mg Lexiscan STRESS SYMPTOMS: Nausea and dizziness. MEDICATIONS: 1.) 100 mg Aminophylline IV EJECTION FRACTION: 65% MEDICAL HISTORY : Hypertension. Smoker. SURGICAL HISTORY : Coronary artery stent. ENCOUNTER: Initial ACUITY: 1 day PAIN SCALE: 0/10 LOCATION: Midsternal chest TECHNIQUE: The patient underwent pharmacologic stress with infusion of prescribed dose. Continuous ECG tracing was monitored during stress. Gated SPECT imaging was performed after stress and conventional SPECT i maging was performed at rest. The examination was performed on a SPECT/CT scanner, both attenuation and non-corrected datasets were reviewed. FINDINGS: DISTRIBUTION: The maximum perfused segment at stress is in the anterolateral wall. PERFUSION STUDY: The pattern of perfusion at stress is within normal limits. GATED STUDY: There is intact wall motion and thickening without hypokinetic or dyskinetic segments. CONCLUSION: 1. No significant reversibility to suggest ischemia. 2. Normal wall motion with ejection fraction 65%. RISK CATEGORY: Low (<1% Annual Mortality Rate) Blaise Lara MD on May 05, 2016 at 11:24 Board Certified Radiologist. This report was verified electronically.
[2016-05-05 11:27] VITALS: BP 135/62; PULSE 58; RESP 20; TEMP 98.1; O2SAT 98
--- NOTE | 2016-05-05 12:53 | HHI.PR ---
Subjective Remarks want to go home. no cp or dizziness. vision nml. Objective Vitals heart reg lung cta abd s/nt ext no edema Vital Signs Date Time Temp Pulse Resp B/P Pulse Ox O2 Delivery O2 Flow Rate FiO2 05/05/16 11:27 98.1 58 20 135/62 98 05/05/16 08:00 64 05/05/16 07:48 97.8 59 20 129/67 97 05/05/16 04:13 98.1 58 18 160/70 97 05/05/16 01:48 98.2 85 18 152/79 97 05/05/16 00:26 64 05/04/16 20:56 97.7 88 18 147/89 97 05/04/16 16:09 98.1 52 20 167/74 96 Result Diagram: 05/04/16 0449 05/05/16 0422 Imaging Last [address] 05/03/161905 Signed Impressions: Service Date/Time: Tuesday, May 03, 2016 19:22 - CONCLUSION: 1. No bleed or other acute intracranial abnormality. 2. Small, old right periventricular white matter infarct suspected. 3. Sinus disease. Juan Elder MD Chest X-Ray 05/03/161905 Signed Impressions: Service Date/Time: Tuesday, May 03, 2016 19:40 - CONCLUSION: Mild left base consolidation. Juan Elder MD A/P Problem List: (1) Hypertensive urgency Status: Acute Plan: Pt presents with severe elevation of htn. describes intermittent total visual loss bilaterally and more lower ext edema over several months. Pt says these sx's were exactly the same way she presented for cad and required a coronary stent in [place]. neuro w/up last night negative for acute cva. bp stable on arb/hctz/ccb.....f/u pcp for recheck discussed with pt recheck of u/a with pcp to look for blood..if there is then pcp will need to refer to urologist. pt understood buddy neg for ischemia echo pending. telemetry (2) CAD (coronary artery disease) Status: Chronic Plan: hx cad stent. 8 yrs ago (3) CKD (chronic kidney disease) stage 3, GFR 30-59 ml/min Status: Chronic Plan: of note pt give hx of "renal art. stenosis" (4) HTN (hypertension) Status: Chronic Plan: see above (5) Anemia Status: Chronic Plan: Questionable duration and etiology. Possibly associated with renal insufficiency. It is noted that her creatinine is typically 1.1 and her hemoglobin was 11.6 in September 2015. (6) Troponin level elevated Status: Acute Plan: r/o cad. could be htn and myocardial strain related. (7) Hyperlipidemia Status: Chronic Plan: Continue medication. Alireza Sofia MD May 05, 2016 12:52
[2016-05-05] MEDS ORDERED: HYDR50TA3 PO (12:54)
[2016-05-05] MEDS ORDERED: NIFE30TA8 PO (12:54)
--- NOTE | 2016-05-05 12:54 | HHI.DCPOC ---
Discharge Care Plan Diagnosis: (1) Hypertensive urgency (2) CKD (chronic kidney disease) stage 3, GFR 30-59 ml/min (3) Hematuria (4) Anemia Goals to Promote Your Health * To prevent worsening of your condition and complications * To maintain your health at the optimal level Directions to Meet Your Goals Take your medications as prescribed Follow your dietary instruction Follow activity as directed Keep your appointments as scheduled Take your immunizations and boosters as scheduled If your symptoms worsen call your PCP, if no PCP go to Urgent Care Center or Emergency Room Smoking is Dangerous to Your Health. Avoid second hand smoke Call the 24-hour hour crisis hotline for domestic abuse at Alireza Sofia MD May 05, 2016 12:54
--- NOTE | 2016-05-06 12:42 | EC ---
Study Study Date:05/04/2016 STUDY CONCLUSIONS SUMMARY LEFT VENTRICLE: The cavity size was normal. Wall thickness was increased in a pattern of mild LVH. There was concentric hypertrophy. Systolic function was normal. The estimated ejection fraction was in the range of 60% to 65%. Although no diagnostic regional wall motion abnormality was identified, this possibility cannot be completely excluded on the basis of this study. Features are consistent with a pseudonormal left ventricular filling pattern, with concomitant abnormal relaxation and increased filling pressure (grade 2 diastolic dysfunction). If LV function is below 40, please consider prescribing an ACEI or ARB or document rationale for non-use. PROCEDURE DATA STUDY STATUS: Elective. Procedure: Transthoracic echocardiography. Image quality was good. Scanning was performed from the parasternal, apical, and subcostal acoustic windows. Study completion: The patient tolerated the procedure well. Transthoracic echocardiography. M-mode, complete 2D, complete spectral Doppler, and color Doppler. Height: Height: 67in. Weight: Weight: 131.7lb. Body mass index: BMI: 20.7kg/m^2. Body surface area: BSA: 1.69m^2. Patient status: Inpatient. CARDIAC ANATOMY LEFT VENTRICLE: The cavity size was normal. Wall thickness was increased in a pattern of mild LVH. There was concentric hypertrophy. Systolic function was normal. The estimated ejection fraction was in the range of 60% to 65%. Although no diagnostic regional wall motion abnormality was identified, this possibility cannot be completely excluded on the basis of this study. Features are consistent with a pseudonormal left ventricular filling pattern, with concomitant abnormal relaxation and increased filling pressure (grade 2 diastolic dysfunction). AORTIC VALVE: The valve appears to be grossly normal. Doppler: There was no stenosis. No regurgitation. MITRAL VALVE: The valve appears to be grossly normal. Doppler: There was no evidence for stenosis. No significant regurgitation. Valve area by pressure half-time: 5cm^2. Indexed valve area by pressure half-time: 2.96cm^2/m^2. Peak gradient: 4mm Hg (D). LEFT ATRIUM: The atrium was normal in size. RIGHT VENTRICLE: Not well visualized. PULMONIC VALVE: Not well visualized. TRICUSPID VALVE: Poorly visualized. Doppler: There was no evidence for stenosis. No significant regurgitation. PERICARDIUM: There was no pericardial effusion. Patient weight: 131.7lb _Ejection fraction:_ 65-75% _Fractional shortening:_ 32% up to 5Kg 5-11.5Kg 11.6-22.9Kg 23-45Kg 45-57Kg Aortic Root 7-13 <17 13-22 17-27 17-27 LA diam 6-13 <23 24-38 33-47 37-40 RVID 10-17 7-15 7-15 7-18 8-17 LVIDd 12-22 <32 24-38 33-47 37-40 LVPW 2-4 3-6 5-7 6-8 7-8 IVS 2-4 3-6 5-7 6-8 7-8 BASIC MEASUREMENTS ADULT NORMAL Left ventricle LV internal dimension, ED, chordal *29.9 mm 43-52 level, PLAX LV internal dimension, ES, chordal *20 mm 23-38 level, PLAX Fractional shortening, chordal level, 33 % >29 PLAX LV posterior wall thickness, ED 12.3 mm IVS/LVPW ratio, ED 0.98 <1.3 Ventricular septum Septal thickness, ED 12 mm Aortic valve Leaflet separation 16 mm 15-26 Left atrium Anterior-posterior dimension 27 mm Anterior-posterior dimension index 1.6 cm/m^2 <2.2 BASIC MEASUREMENTS ADULT NORMAL Aortic valve Leaflet separation 16 mm 15-26 DOPPLER MEASUREMENTS ADULT NORMAL Aortic valve Peak velocity, S 108 cm/s Mitral valve Peak E-wave velocity 96.7 cm/s Peak A-wave velocity 70.1 cm/s Pressure half-time 44 ms Peak gradient, D 4 mm Hg Peak E/A ratio 1.4 Valve area, pressure half-time 5 cm^2 Valve area index, pressure half-time 2.96 cm^2/m^2 Pulmonic valve Peak velocity, S 99.1 cm/s LEGEND: Mean values are shown as u=mean value. Asterisk (*) nagy values outside specified normal range. Prepared and signed by Derek Wilson [id number]
[2016-06-27] MEDS ORDERED: ROSU1TAB6 PO (11:20)
[2016-06-27] MEDS ORDERED: LEVO50TA4 PO (11:20)
[2016-06-27] MEDS ORDERED: TRAZ150T75 PO (11:20)
[2016-06-27] MEDS ORDERED: DOCU1CAP39 PO (11:21)
[2016-06-27] MEDS ORDERED: Aspirin Ec PO (11:21)
[2016-06-27] MEDS ORDERED: NIFE30TA8 PO (11:21)
[2016-06-27] MEDS ORDERED: NICO14DI T-DERMAL (11:21)
[2016-06-27] MEDS ORDERED: ATEN25TA PO (11:21)
[2016-06-27] MEDS ORDERED: IRBE150T49 PO (11:21)
[2016-06-27] MEDS ORDERED: ATOR40TA16 PO (11:36)
[2016-06-28] MEDS ORDERED: NIFE30TA8 PO (08:16)
[2016-06-28] MEDS ORDERED: CLON.1 PO (08:16)
== END 2016-05-05 15:53 | disposition home or self-care (01) | DRG 304 ==
LOC: NEPA 18:25 → NEDA 21:11 → OBSVTOIN 21:11 → NEPGCP 23:48
PROVIDERS: ADMIT Hospitalist; ATTEND Hospitalist
DX: I16.0 Hypertensive urgency (principal); J18.9 Pneumonia, unspecified organism; G45.3 Amaurosis fugax; I12.9 Hypertensive chronic kidney disease with stage 1 through stage 4 chronic kidney disease, or unspecified chronic kidney disease; N18.3 Chronic kidney disease, stage 3 (moderate); H54.7 Unspecified visual loss; I25.10 Atherosclerotic heart disease of native coronary artery without angina pectoris; Z95.5 Presence of coronary angioplasty implant and graft; R74.8 Abnormal levels of other serum enzymes; E78.5 Hyperlipidemia, unspecified; Z87.01 Personal history of pneumonia (recurrent); F17.210 Nicotine dependence, cigarettes, uncomplicated; D64.9 Anemia, unspecified
CPT/HCPCS: 70450; 70544; 70551; 71010; 78452; 80048; 80053; 80061; 81001; 82550; 84443; 84484; 85025; 85610; 85730; 86038; 87040; 87086; 93005; 93017; 93306; 93880; 96374; 96375; A9502; J0280; J0360; J0456; J0696; J2785; J7050

== ENCOUNTER 2017-01-09 08:14 | Day surgery (SDC) | payer OTHER ==
[~2017-01-09] VITALS: Ht 172.7 cm; Wt 58.2 kg
[2017-01-09] VITALS (8 sets, daily range): BP systolic 123–205; BP diastolic 60–92; PULSE 56–69; RESP 16–20; TEMP 97.8–98.1; O2SAT 92–99
[~2017-01-09 08:14] MED LIST: ATOR40TA16 PO; Aspirin Ec PO; CLON.1 PO; DOCU1CAP39 PO; IRBE150T49 PO; LEVO50TA4 PO; NICO14DI T-DERMAL; NIFE30TA8 PO; TRAZ150T75 PO
[2017-01-09] MEDS ORDERED: NIFE1TAB PO (08:35)
[2017-01-09] MEDS ORDERED: TRAZ1TAB14 PO (08:35)
[2017-01-09] MEDS ORDERED: PLAV75TA29 PO (08:35)
[2017-01-09] MEDS ORDERED: ASPI-147 PO (08:35)
[2017-01-09] MEDS ORDERED: MULT1TAB46 (08:35)
[2017-01-09] MEDS ORDERED: SODIUM CHLOR 0.9% 1000 ML IV SCH (09:00)
[2017-01-09] MEDS ORDERED: LIDOCAINE 1%/EPINEPHrine 1:100,000 SOLN 20 ML VIAL ONE (09:24)
[2017-01-09] MEDS ORDERED: MIDAZOLAM HCL 2 MG/2 ML VIAL ONE (09:34)
[2017-01-09] MEDS ORDERED: THROMBIN (TOPICAL) 5,000 UNIT VIAL ONE (09:40)
--- NOTE | 2017-01-09 10:43 | PD.RAD ---
Post CT Procedure Prog Note Pre Procedure Diagnosis: (1) CKD (chronic kidney disease) stage 3, GFR 30-59 ml/min Post Procedure Diagnosis: (1) CKD (chronic kidney disease) stage 3, GFR 30-59 ml/min Procedure Date: Jan 09, 2017 Supervising Radiologist: Maurizio Bustillo JR Anesthesia: Conscious Sedation Plan of Activity Patient to Unit: ROPU Patient Condition: Good See PACS Report for procedural detail/treatment Biopsy Imaging Guidance: CT Side: Left Biopsy Procedure: Kidney Specimen: Core Biopsy Findings: Right kidney atrophic particularly involving lower pole which is the only area accessible for bx. Therefore a left renal bx was performed. Good sample noted. Thrombin/gelfoam utilized. No significant hemorrhage on post bx images. Jr. Keny,Maurizio Liu MD Jan 09, 2017 10:43
--- NOTE | 2017-01-09 11:30 | RADRPT ---
EXAM DATE/TIME: 01/09/2017 10:04 [facility] COMPARISON: No previous studies available for comparison. INDICATIONS : Proteinuria. SEDATION TIME: 30 minutes BIOPSY SITE: Left kidney MEDICATION(S): 1.) 4 mg midazolam (Versed) IV 2.) 200 mcg fentanyl (Sublimaze) IV DEVICE(S): 1.) 18 gauge BioPince needle MEDICAL HISTORY : Hypertension. Hypothyroidism. Stroke SURGICAL HISTORY : None. ENCOUNTER: Initial ACUITY: 1 day PAIN SCORE: 0/10 LOCATION: Bilateral abdomen A total of one core specimen(s) were obtained and sent to the laboratory for pathologic evaluation. PROCEDURE: 1. CT guided left renal biopsy. 2. Conscious sedation with continuous EKG and oximetry monitoring. 3. EKG and oximetry remained stable throughout the procedure. Prior to the procedure informed consent was obtained. Any appropriate prior imaging studies were rev iewed. Using automated exposure control and adjustment of the mA and/or kV according to patient size, radiat ion dose was kept as low as reasonably achievable to obtain optimal diagnostic quality images. DICOM format image data is available electronically for review and comparison. The site was prepped in a sterile fashion. Full sterile technique was used, including cap, mask, dee rile gloves and gown and a large sterile sheet. Hand hygiene and 2% chlorhexidine and/or betadine/al cohol prep was utilized per protocol for cutaneous antisepsis. The skin and subcutaneous tissues wer e infiltrated with local anesthetic solution. Limited CT images were performed in preparation for the biopsy. The left kidney sits fairly high with in the retroperitoneum with the lung covering much of the upper and mid pole. The lower pole is very atrophic. It was decided that biopsy of the left kidney should be performed due to these features. Wi th CT guidance the left lower pole kidney was localized. Biopsy was performed using the prescribed ne edle as above. Thrombin and Gelfoam slurry was utilized to aid in hemostasis. Adequate hemostasis was obtained with compression at the puncture site. Follow-up CT scan reveals no hemorrhage. The patient tolerated the procedure well and there were no complications. The patient was returned to the Radiology Outpatient Unit in stable condition. CONCLUSION: Uncomplicated CT guided for biopsy of the left kidney. Right kidney could not be biopsied secondary t o the above-mentioned factors. Maurizio Bustillo Jr., MD on January 09, 2017 at 11:26 Board Certified Radiologist. This report was verified electronically.
[2017-01-09 12:21] LABS: AUTOMATED NEUTROPHIL # 7.6 TH/MM3 (1.8-7.7); BASOPHIL # 0.1 TH/MM3 (0-0.2); BASOPHIL % 0.6 % (0.0-2.0); EOSINOPHIL # 0.2 TH/MM3 (0-0.4); EOSINOPHIL % 1.5 % (0.0-4.0); HEMATOCRIT 31.6 % (35.0-46.0); HEMO FLAGS DIFF FINAL; LYMPHOCYTE # 2.5 TH/MM3 (1.0-4.8); MEAN CELL VOLUME 89.6 FL (80.0-100.0); MEAN CORPUSCULAR HEMOGLOBIN 29.2 PG (27.0-34.0); MEAN CORPUSCULAR HGB CONC 32.6 % (32.0-36.0); NEUT % 70.9 % (16.0-70.0); PLATELET COUNT 188 TH/MM3 (150-450); RED BLOOD COUNT 3.53 MIL/MM3 (4.00-5.30); RED CELL DISTRIBUTION WIDTH 14.3 % (11.6-17.2); WHITE BLOOD COUNT 10.7 TH/MM3 (4.0-11.0)
[2017-01-09 13:50] LABS: AUTOMATED NEUTROPHIL # 7.1 TH/MM3 (1.8-7.7); BASOPHIL % 0.5 % (0.0-2.0); EOSINOPHIL # 0.2 TH/MM3 (0-0.4); EOSINOPHIL % 1.6 % (0.0-4.0); HEMATOCRIT 29.2 % (35.0-46.0); HEMO FLAGS DIFF FINAL; LYMPH % 26.2 % (9.0-44.0); LYMPHOCYTE # 2.7 TH/MM3 (1.0-4.8); MEAN CELL VOLUME 85.6 FL (80.0-100.0); MEAN CORPUSCULAR HEMOGLOBIN 29.7 PG (27.0-34.0); MEAN CORPUSCULAR HGB CONC 34.7 % (32.0-36.0); MONO % 3.8 % (0.0-8.0); NEUT % 67.9 % (16.0-70.0); PLATELET COUNT 215 TH/MM3 (150-450); RED BLOOD COUNT 3.41 MIL/MM3 (4.00-5.30); RED CELL DISTRIBUTION WIDTH 14.2 % (11.6-17.2); WHITE BLOOD COUNT 10.5 TH/MM3 (4.0-11.0)
== END 2017-01-09 14:55 | disposition home or self-care (01) ==
LOC: HRAD 08:14 → HRIP 08:18 → HRAD 14:55
PROVIDERS: ATTEND Internal Medicine Nephrology
DX: I12.9 Hypertensive chronic kidney disease with stage 1 through stage 4 chronic kidney disease, or unspecified chronic kidney disease (principal); N18.3 Chronic kidney disease, stage 3 (moderate); E03.9 Hypothyroidism, unspecified; Z86.73 Personal history of transient ischemic attack (TIA), and cerebral infarction without residual deficits
CPT/HCPCS: 50200; 77012; 85025; J2250; J3010; J7030